=== PATIENT | female | born 1935 | race Caucasian/White ===

== ENCOUNTER 2020-11-26 17:54 | Inpatient (IN) | payer MEDICARE ==
[~2020-11-26] VITALS: Ht 162.6 cm; Wt 59.4 kg
[2020-11-26] MEDS ORDERED: ONDANSETRON HCL/PF 4 MG/2 ML VIAL IV ONE (18:00)
[2020-11-26] MEDS ORDERED: MORPHINE SULFATE INJ 2 MG/ML DISP.SYRIN IV ONE (18:00)
--- NOTE | 2020-11-26 18:01 | NUR ---
Note undone in EDM - 11/26/20 at 1815 by VALERIO BIBRA FROM HOME TO ER BED 16. AAOX4. BREATHING EVEN AND UNLABORED. BROUGHT IN FOR R ARM PAIN S/P FALL. PT WAS NOTED WITH DEFORMITY ON RIGHT UPPER ARM. PEDAL PULSE NOTED. MD WAS AT THE BEDSIDE FOR EVAL. ORDERS RECEIVED, NOTED AND CARRIED OUT.
--- NOTE | 2020-11-26 18:01 | NUR ---
BIBRA FROM HOME TO ER BED 16. AAOX4. BREATHING EVEN AND UNLABORED. BROUGHT IN FOR R ARM PAIN S/P FALL. PT WAS NOTED WITH DEFORMITY ON RIGHT UPPER ARM. RADIAL PULSE NOTED. MD WAS AT THE BEDSIDE FOR EVAL. ORDERS RECEIVED, NOTED AND CARRIED OUT.
[2020-11-26] MEDS ORDERED: ONDANSETRON HCL/PF 4 MG/2 ML VIAL ONE (18:04)
[2020-11-26] MEDS ORDERED: MORPHINE SULFATE INJ 4 MG/ML DISP.SYRIN ONE (18:04)
--- NOTE | 2020-11-26 18:32 | NUR ---
CALLED LISSET[facility] OSMAN PAGED FOR CONSULT
[2020-11-26] MEDS ORDERED: LOSA50TA39 PO (18:35)
[2020-11-26] MEDS ORDERED: HYDR-3980 PO (18:35)
[2020-11-26] MEDS ORDERED: OMEP20CA15 PO (18:35)
[2020-11-26] MEDS ORDERED: CLON1TAB12 PO (18:35)
[2020-11-26] MEDS ORDERED: BENZ-38 PO (18:35)
[2020-11-26] MEDS ORDERED: DONE10TA44 PO (18:35)
[2020-11-26] MEDS ORDERED: DOCU100T9 PO (18:35)
[2020-11-26] MEDS ORDERED: QUET25TA PO (18:35)
[2020-11-26] MEDS ORDERED: FENTANYL PF 100MCG/2ML AMPUL ONE (18:59)
[2020-11-26] MEDS ORDERED: FENTANYL PF 100MCG/2ML AMPUL IV ONE (19:00)
[2020-11-26 19:05] LABS: BASOPHILS # (AUTO) 0.1 /CMM (0.0-0.2); BASOPHILS % (AUTO) 1.1 % (0.0-2.0); EOSINOPHILS % (AUTO) 3.5 % (0.0-6.0); HEMATOCRIT 47 % (33-45); HEMOGLOBIN 15.6 g/dL (11.5-14.8); LYMPHOCYTES # (AUTO) 1.4 /CMM (0.8-4.8); LYMPHOCYTES % (AUTO) 16.9 % (20.0-44.0); MEAN CORPUSCULAR HGB CONC 33 g/dl (31.0-36.0); MEAN CORPUSCULAR VOLUME 94 fL (82-100); MONOCYTES # (AUTO) 0.6 /CMM (0.1-1.30); MONOCYTES % (AUTO) 6.8 % (2.0-12.0); NEUTROPHILS # (AUTO) 5.9 /CMM (1.8-8.9); NEUTROPHILS % (AUTO) 71.7 % (43.0-81.0); PLATELET COUNT (AUTO) 263 /CMM (150-450); RED BLOOD CELL COUNT(AUTO) 4.97 MIL/uL (4.0-5.2); WHITE BLOOD COUNT (AUTO) 8.3 K/uL (4.3-11.0)
[2020-11-26] MEDS ORDERED: MAGNESIUM HYDROXIDE 30 ML UDC PO PRN (19:30)
[2020-11-26] MEDS ORDERED: HYDROMORPHONE 1 MG/1 ML DISP.SYRIN IV PRN (19:30)
[2020-11-26] MEDS ORDERED: Z GUARD REMEDY 2 OZ OINT TP PRN (19:30)
[2020-11-26] MEDS ORDERED: MAG HYDROX/AL HYDROX/SIMETH 30 ML UDC PO PRN (19:30)
[2020-11-26] MEDS ORDERED: ONDANSETRON HCL/PF 4 MG/2 ML VIAL IVP PRN (19:30)
[2020-11-26 20:01] LABS: CALCIUM, SERUM 9.4 mg/dL (8.5-10.1); CARBON DIOXIDE 28 mmol/L (21-32); CHLORIDE 103 mmol/L (98-107); CREATININE 1.9 mg/dL (0.6-1.3); GLUCOSE 101 mg/dL (74-106); POTASSIUM 3.7 mmol/L (3.5-5.1); SODIUM SERUM 144 mmol/L (136-145); UREA NITROGEN, BLOOD 63 mg/dL (7-18)
--- NOTE | 2020-11-26 20:05 | NUR ---
SPOKE TO [facility]; WILL SEND ALL PAPERS THROUGH EMAIL.
[2020-11-26 20:21] VITALS: BP 127/71
[2020-11-26] MEDS ORDERED: LORAZEPAM INJ 2 MG/ML VIAL IV PRN (20:30)
[2020-11-26] MEDS: HEPARIN SODIUM, PORCINE 5000 UNITS/1 ML VIAL SQ SCH (21:00)
--- NOTE | 2020-11-26 21:48 | NUR ---
report given to novem rn for madhav; pt will be transported to 3rd floor
[2020-11-26] MEDS ORDERED: DONEPEZIL 5 MG TABLET PO SCH (22:00)
[2020-11-26] MEDS ORDERED: TEMAZEPAM 15 MG CAPSULE PO PRN (22:00)
--- NOTE | 2020-11-26 22:07 | NUR ---
pt transported to 3rd floor
--- NOTE | 2020-11-26 22:10 | NUR ---
MS ENVELOPE ADDRESSER NOTES: PATIENT ADMITTED FROM ER WITH DIAGNOSIS OF RIGHT HUMERUS FRACTURE. PT IS ALERT AND ORIENTED X2 WITH PERIODS OF FORGETFULNESS. NO S/SX OF ACUTE RESPIRATORY DISTRESS NOTED. DENIES PAIN OR DISCOMFORT AT THIS TIME. PATIENT HAS MEDICAL HISTORY OF DEMENTIA, HYPERTENSION AND GERD. IV ACCESS ON LFA #20G IV FLUIDS NS INFUSING AT 75ML/HR, PATENT AND INTACT, TOLERATING WELL. ALL NEEDS ATTENDED AND ANTICIPATED. BELONGINGS CHECKED. REPOSITIONED PT FOR COMFORT. ASSISTED PATIENT WITH THE USE OF BEDSIDE COMMODE. SAFETY MEASURES IN PLACE, BED IN LOW SETTING, SIDE RAILS X2 IN UPRIGHT POSITION, BRAKES LOCKED. CALL LIGHT WITHIN REACH. WILL CONTINUE TO MONITOR AND ENSURE SAFETY. Addendum: 11/27/20 at 0126 by VASU NO RN SKIN ASSESSMENT DONE. SKIN INTACT
[2020-11-26 22:30] VITALS: BP 127/71
[2020-11-26] MEDS: IV NS 0.9% 1,000 ML IV PRN (22:39)
--- NOTE | 2020-11-26 23:19 | NUR ---
MS RN NOTES HEPARIN DOSE SCHEDULED AT 2200, NON-ADMINISTERED D/T POSSIBLE SURGERY/PROCEDURE TOMORROW. WILL ENDORSE TO MORNING SHIFT.
[2020-11-26] MEDS: QUETIAPINE FUMARATE 25 MG TABLET PO SCH (23:22)
[2020-11-27] VITALS (15 sets, daily range): BP systolic 101–152; BP diastolic 37–99
[2020-11-27 07:30] LABS: BILIRUBIN,URINE NEGATIVE (NEGATIVE); COLOR,URINE YELLOW (YELLOW); LEUKOCYTE ESTERASE ,URINE LARGE (NEGATIVE); NITRITE, URINE NEGATIVE (NEGATIVE); PH,URINE 5.5 (5.0-8.0); PROTEIN,URINE TRACE mg/dl (NEGATIVE); UGLUCOSE NEGATIVE (NEGATIVE); UROBILINOGEN,URINE 0.2 EU/dL (0.2)
--- NOTE | 2020-11-27 07:35 | NUR ---
MS RN CLOSING NOTES: PATIENT IN BED AWAKE, A/OX2, WITH PERIODS OF CONFUSION NOTED. REORIENTATION PROVIDED. NO ACUTE DISTRESS NOTED. NO C/O PAIN OR DISCOMFORT AT THIS TIME. IV ACCESS ON LFA PATENT AND INTACT, INFUSING NS @75ML/HR, TOLERATING WELL. PT IS ON NPO. SAFETY MEASURES IN PLACE. ALL NEEDS MET AND ATTENDED. WILL ENDORSE TO AM SHIFT FOR CONTINUITY OF CARE.
--- NOTE | 2020-11-27 07:38 | NUR ---
MS/RN OPENING NOTE RECEIVED PATIENT FROM [employer] WARFARE OFFICER NURSE. PATIENT IS AWAKE IN BED, A/O X2. NO ACUTE DISTRESS NOTED AT THIS TIME. SAFETY MEASURES IN PLACE, BED LOCKED AND IN LOWEST POSITION, CALL LIGHT WITHIN REACH. WILL CONTINUE TO MONITOR AND ENSURE SAFETY.
[2020-11-27] MEDS: HEPARIN SODIUM, PORCINE 5000 UNITS/1 ML VIAL SQ SCH ×2 (09:00→22:00)
[2020-11-27] MEDS: DOCUSATE SODIUM 100 MG CAPSULE PO SCH (09:00)
--- NOTE | 2020-11-27 10:25 | NUR ---
MS/RN HEPARIN HELD HEPARIN HELD DUE TO ORTHO CONSULT LATER TODAY BY DR. CANELA. AWAITING FOR FURTHER ORDERS. CHARGE NURSE AWARE OF HELD MEDICATION.
[2020-11-27 11:30] LABS: RBC,URINE 21-50 /HPF (0-2)
[2020-11-27 11:31] LABS: WBC,URINE 51-80 /HPF (0-3)
[2020-11-27 11:32] LABS: BACTERIA,URINE Many /HPF (None Seen); SQUAMOUS EPITHELIAL CELL,UR Few /HPF (None Seen)
[2020-11-27] MEDS: CEFTRIAXONE 1 G in IV D5W 50 ML IV SCH (12:49)
[2020-11-27] MEDS: IV NS 0.9% 1,000 ML IV PRN (12:53)
--- NOTE | 2020-11-27 14:16 | NUR ---
SW attempted to meet with the patient. Patient was requesting to use the restroom. SW asked BUSINESS AREA DIRECTOR to assist, SW to follow-up with the patient. SW remains available for all needs regarding this patient.
[2020-11-27] MEDS ORDERED: ANESTHESIA TRAY IN PYXIS 1 EA TRAY MC ONE (15:02)
[2020-11-27] MEDS ORDERED: BUPIVACAINE 0.5 % PF 150 MG/30 ML VIAL ONE (15:02)
[2020-11-27] MEDS ORDERED: BACITRACIN 50000 UNITS/VIAL ONE (15:03)
[2020-11-27] MEDS ORDERED: MIDAZOLAM HCL 2 MG/2ML VIAL ONE (15:04)
[2020-11-27] MEDS ORDERED: FENTANYL PF 100MCG/2ML AMPUL ONE (15:05)
[2020-11-27] MEDS ORDERED: FENTANYL PF 250MCG/5ML AMPUL ONE (15:05)
[2020-11-27] MEDS ORDERED: HYDROMORPHONE INJ 2 MG/ML DISP.SYRIN ONE (15:06)
[2020-11-27] MEDS ORDERED: FAMOTIDINE/PF INJ 20 MG/2 ML VIAL IV ONE (15:06)
--- NOTE | 2020-11-27 15:10 | NUR ---
MS/RN PATIENT TAKEN TO OR PATIENT TAKEN TO OR TO HAVE IM RIGHT HUMERUS FRACTURE REPAIRED. VERBAL CONSENT WAS GIVEN TO SCRIBER AND CHARGE NURSE PRESENT. PATIENT ALERT AND ORIENTED X3 WITH EPISODES OF CONFUSION. PATIENT REFUSED BLOOD PRODUCTS DUE TO MUSLIM PURPOSES, PATIENT IS JEHOVAH WITNESS.
--- NOTE | 2020-11-27 15:15 | NUR ---
Patient lives locally with a friend/roommate in a single level home. Per Lo friend/roommate [phone], patient was on hospice care with [facility] care [phone] and was revoked today due to hospitalization.Patient was walking with assistance prior to admission but confined to bed most of the day. She own a cane, walker, wheelchair, has handicapped bathroom and grab bars in the hallway.Spoke with DPOA Harrison Delgado [phone], discussed dc planning. No SNF placement, DPOA prefer patient to return home with short term homehealth services then transition back to hospice care. Spoke with Leanne at [facility], aware of current plan of care. DPOA will arrange transportation to return home once discharge. Addendum: 11/27/20 at 1630 by ERNIE BARRETT RN Amended: Links added.
[2020-11-27 15:26] LABS: BASOPHILS % (AUTO) 0.2 % (0.0-2.0); EOSINOPHILS % (AUTO) 0.1 % (0.0-6.0); HEMATOCRIT 44 % (33-45); HEMOGLOBIN 14.7 g/dL (11.5-14.8); LYMPHOCYTES # (AUTO) 0.7 /CMM (0.8-4.8); LYMPHOCYTES % (AUTO) 7.3 % (20.0-44.0); MEAN CORPUSCULAR HGB CONC 34 g/dl (31.0-36.0); MEAN CORPUSCULAR VOLUME 92 fL (82-100); MONOCYTES # (AUTO) 0.7 /CMM (0.1-1.30); MONOCYTES % (AUTO) 7.5 % (2.0-12.0); NEUTROPHILS # (AUTO) 7.9 /CMM (1.8-8.9); NEUTROPHILS % (AUTO) 84.9 % (43.0-81.0); RED BLOOD CELL COUNT(AUTO) 4.77 MIL/uL (4.0-5.2); WHITE BLOOD COUNT (AUTO) 9.3 K/uL (4.3-11.0)
--- NOTE | 2020-11-27 15:39 | NUR ---
SW was informed patient had been taken to the OR for procedure. SW to follow-up with the patient. SW remains available for all needs regarding this patient.
[2020-11-27 16:23] LABS: PLATELET COUNT (AUTO) 265 /CMM (150-450)
[2020-11-27 16:34] LABS: CALCIUM, SERUM 10.1 mg/dL (8.5-10.1); CARBON DIOXIDE 27 mmol/L (21-32); CHLORIDE 108 mmol/L (98-107); CREATININE 1.4 mg/dL (0.6-1.3); GLUCOSE 98 mg/dL (74-106); MAGNESIUM 2.3 mg/dL (1.8-2.4); PHOSPHORUS 3.2 mg/dL (2.5-4.9); POTASSIUM 3.7 mmol/L (3.5-5.1); SODIUM SERUM 145 mmol/L (136-145); UREA NITROGEN, BLOOD 48 mg/dL (7-18)
[2020-11-27 16:44] LABS: CHOLESTEROL 130 mg/dL (<200); HDL CHOLESTEROL 75 mg/dL (40-60); LDL 50 mg/dL (0-99); THYROID STIMULATING HORMONE 1.612 uIU/mL (0.358-3.74); TRIGLYCERIDES 49 mg/dL (30-150)
[2020-11-27] MEDS ORDERED: VANCOMYCIN 1 GM VIAL ONE (16:52)
[2020-11-27] MEDS ORDERED: DIGOXIN INJ 0.5 MG/2 ML AMPUL ONE (18:20)
--- NOTE | 2020-11-27 20:46 | NUR ---
MANAGER PAPER NOTE Report given to KYLIE Jaime for continuation of care. Patient transferred to [facility].
[2020-11-27] MEDS ORDERED: CEFAZOLIN 2 GM in IV D5W 100 ML IV SCH (21:00)
[2020-11-27] MEDS ORDERED: CEFAZOLIN 1 GM VIAL IM SCH (21:00)
[2020-11-27] MEDS ORDERED: IV NS 0.9% 500 ML IV ONE (21:00)
[2020-11-27] MEDS ORDERED: AMIODARONE 150 MG in IV D5W 100 ML IV ONE (22:00)
[2020-11-27] MEDS: AMIODARONE 450 MG in IV D5W 250 ML IV PRN (22:39)
[2020-11-27] MEDS: QUETIAPINE FUMARATE 25 MG TABLET PO SCH (22:43)
[2020-11-28] VITALS (42 sets, daily range): BP systolic 81–147; BP diastolic 21–122
[2020-11-28] MEDS: IV D5/0.45 NACL W/20 MEQ KCL 1L IV PRN ×4 (00:05→13:30)
[2020-11-28] MEDS: CEFAZOLIN 2 GM in IV D5W 100 ML IV SCH ×2 (01:26→10:48)
[2020-11-28] MEDS: MORPHINE SULFATE INJ 2 MG/ML DISP.SYRIN IV PRN ×3 (01:33→17:16)
[2020-11-28] MEDS: AMIODARONE 450 MG in IV D5W 250 ML IV PRN ×2 (06:21→21:18)
--- NOTE | 2020-11-28 07:00 | NUR ---
HARNESS RIGGER: PT STILL A. FIB ON LAMP MECHANIC. AMIODARONE DRIP RATE CHANGED TO 0.5MG/MIN AT 0440. REMAINS A/O X2-3 AND GIVEN ATIVAN AND MORPHINE X1 DURING THE SHIFT FOR RESTLESSNESS AND RT. SHOULDER S/P SURGERY. BOTH MEDS GIVEN WT GOOD EFFECT. SURGICAL SITE WT NO ACTIVE BLEEDING. DRESSING DRY, CLEAN AND INTACT AND ON RT. ARM SLING. LEFT WRIST SOFT RESTRAINT IN PLACE FOR EPISODES OF TRYING TO PULL OUT IV TUBINGS. SKIN AND CIRCULATION WNL. GOOD URINE OUTPUT VIA F/C. HOB AT 35 DEGREES, BED IN LOWEST POSITION AND LOCKED. BED ALARM ON. SIDE RAILS UP X2. CALL LIGHT KEPT WITHIN REACH.
--- NOTE | 2020-11-28 08:00 | NUR ---
RN NOTES RECEIVED PT BEDSIDE MONITOR SHOWS A. 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 AMIODARONE DRIP TO 0.5MG/MIN . PATIENT A/A/O X2,SHOULDER S/P SURGERY. SURGICAL SITE WT NO ACTIVE BLEEDING. DRESSING DRY, CLEAN AND INTACT. LEFT ARM SLING WRIST SOFT RESTRAINT IN PLACE FOR TRYING TO PULL OUT IV, AND GROSS TUBINGS. GOOD URINE OUTPUT VIA F/C. HOB AT 35 DEGREES, BED IN LOWEST POSITION AND LOCKED. BED ALARM ON. SIDE RAILS UP X2. CALL LIGHT KEPT WITHIN REACH. WILL MONITORING.
[2020-11-28] MEDS: DOCUSATE SODIUM 100 MG CAPSULE PO SCH (08:07)
[2020-11-28] MEDS: HEPARIN SODIUM, PORCINE 5000 UNITS/1 ML VIAL SQ SCH (08:25)
--- NOTE | 2020-11-28 10:11 | NUR ---
RN NOTES ADMINISTERED MORPHINE SULFATEE 2 MG/ML IV PUSH FOR PAIN ON RIGHT SHOULDER 05/29 PER PATIENT REQUEST, V/S TAKEN BP 102/57, p-76, WILL MONITORING.
[2020-11-28] MEDS: APIXABAN 2.5 MG TABLET PO SCH ×2 (10:44→16:41)
--- NOTE | 2020-11-28 11:15 | NUR ---
RN NOTES MEDICATION WERE ADMINISTERED FOR PAIN EFFECTIVE, PATIENT WITH PT AT THIS TIME. PER PT TRYING TO ASSIST TO GET OUT OB BED.
[2020-11-28] MEDS: CEFTRIAXONE 1 G in IV D5W 50 ML IV SCH (13:30)
[2020-11-28 14:51] LABS: THYROID STIMULATING HORMONE 3.373 uIU/mL (0.358-3.74)
--- NOTE | 2020-11-28 17:17 | NUR ---
rn notes ADMINISTERED MORPHINE SULFATE 2 MG/ML IV PUSH FOR RIGHT SHOULDER PAIN 05/29 PER PATIENT REQUEST. BP 103/43, P-78. ADMINISTERED SCHEDULED MEDICATION.
--- NOTE | 2020-11-28 18:30 | NUR ---
rn notes patient stable, v/s wnl, medication were administered for pain effective, sleeping at this time, refused dinner. patient will transfer tele, endorsed oncoming nurse follow plan of care.
[2020-11-28] MEDS: QUETIAPINE FUMARATE 25 MG TABLET PO SCH (22:27)
[2020-11-29] VITALS (89 sets, daily range): BP systolic 61–137; BP diastolic 17–87
[2020-11-29] MEDS: IV D5/0.45 NACL W/20 MEQ KCL 1L IV PRN ×4 (02:43→16:03)
[2020-11-29 04:45] LABS: BASOPHILS # (AUTO) 0.1 /CMM (0.0-0.2); BASOPHILS % (AUTO) 0.3 % (0.0-2.0); EOSINOPHILS % (AUTO) 0.2 % (0.0-6.0); HEMATOCRIT 35 % (33-45); HEMOGLOBIN 11.7 g/dL (11.5-14.8); LYMPHOCYTES # (AUTO) 1.4 /CMM (0.8-4.8); LYMPHOCYTES % (AUTO) 6.5 % (20.0-44.0); MEAN CORPUSCULAR HGB CONC 33 g/dl (31.0-36.0); MEAN CORPUSCULAR VOLUME 94 fL (82-100); MONOCYTES # (AUTO) 1.4 /CMM (0.1-1.30); MONOCYTES % (AUTO) 6.5 % (2.0-12.0); NEUTROPHILS # (AUTO) 18.4 /CMM (1.8-8.9); NEUTROPHILS % (AUTO) 86.5 % (43.0-81.0); PLATELET COUNT (AUTO) 200 /CMM (150-450); RED BLOOD CELL COUNT(AUTO) 3.73 MIL/uL (4.0-5.2); WHITE BLOOD COUNT (AUTO) 21.3 K/uL (4.3-11.0)
[2020-11-29 04:55] LABS: CALCIUM, SERUM 8.5 mg/dL (8.5-10.1); MAGNESIUM 1.9 mg/dL (1.8-2.4); PHOSPHORUS 1.7 mg/dL (2.5-4.9); POTASSIUM 3.7 mmol/L (3.5-5.1)
[2020-11-29] MEDS: DOCUSATE SODIUM 100 MG CAPSULE PO SCH (07:54)
[2020-11-29] MEDS: MORPHINE SULFATE INJ 2 MG/ML DISP.SYRIN IV PRN ×3 (07:55→17:54)
--- NOTE | 2020-11-29 07:55 | NUR ---
RN NOTES RECEIVED PT BEDSIDE MONITOR SHOWS Rosy CHILEL ON [employer] AGENCY LICENSEE HR- 91, WAS COMPLAINING OF PAIN 8/10 ON RIGHT SHOULDER ADMINISTERED MORPHINE SULFATE 2 MG/ML IV PUSH, AMIODARONE DRIP TO 0.5MG/MIN , AND 0.15% POTASSIUM CHLORIDE AT 75 ML/HR. PATIENT A/A/O X2,SHOULDER S/P SURGERY. SURGICAL SITE WT NO ACTIVE BLEEDING. DRESSING DRY, CLEAN AND INTACT. RIGHT FA IV LEFT SLING , SOFT RESTRAINT LEFT ARM IN PLACE FOR TRYING TO PULL OUT IV, AND GINNY, BRIGID GANG DRILL PRESS OPERATOR PLAN IS HAVING CARDIO VERSION WITH ANESTHESIA. GOOD URINE OUTPUT VIA F/C. BED IN LOWEST POSITION AND LOCKED. BED ALARM ON. SIDE RAILS UP X2. CALL LIGHT KEPT WITHIN REACH. WILL MONITORING.
--- NOTE | 2020-11-29 10:00 | NUR ---
RN NOTES PATIENT GETTING CARDIOVERSION AT THIS TIME VIA ANESTHESIA, BY MD DR MAX, PATIENT STABLE, DURATION 5 MINS, V.S STABLE. PER Dr MAX AFTER FINISH AMIODARONE DRIP IV, START PO MEDICATION. WILL MONITORING.
[2020-11-29] MEDS ORDERED: NEUTRA PHOS 1 POWD.PACKET NG ONE (11:00)
[2020-11-29] MEDS: APIXABAN 5 MG TABLET PO SCH ×2 (11:35→17:23)
[2020-11-29] MEDS: CEFTRIAXONE 1 G in IV D5W 50 ML IV SCH (11:53)
--- NOTE | 2020-11-29 11:54 | NUR ---
RN NOTES ADMINISTERED MORPHINE SULFATE 2 MG/ML IV PUSH FOR PAIN 06/29 PER PATIENT REQUEST, BP 106/62, P-70, , R-17.
[2020-11-29] MEDS: AMIODARONE HCL 200 MG TABLET PO SCH (17:22)
--- NOTE | 2020-11-29 17:55 | NUR ---
rn notes ADMINISTERED MORPHINE SULFATE 2 MG/ML IV PUSH FOR PAIN /10 PER PATIENT REQUEST, BP-139/34, P-62. GROSS DRAINING BY GRAVITY, PATIENT TOLERATED DINNER 35% WITH ASSIST . CALL LIGHT WITHIN TO REACH. PATIENT WILL TRANSFER SERGIO WAITING FOR BED.
--- NOTE | 2020-11-29 18:45 | NUR ---
rn notes patient transferred to the tele unit room 328a, stable medication were administered for pain effective, v/s wnl, report given telephone information clerk Ray. Rn will followed up plan of care.
--- NOTE | 2020-11-29 18:57 | NUR ---
VOLUNTEER SERVICES DIRECTOR CLOSING NOTES PATIENT TRANSFERRED FROM ACU TO 1328-1 VIA HER BED AT 1835 ACCOMPANIED BY KYLIE ALEJANDRO. REPORT GIVEN AT BEDSIDE. PT IS A/O X3. ABLE TO MAKE NEEDS KNOWN. ON 02 VIA N/C AT 2LPM AT THIS TIME, TOLERATING WELL WITH NO ACUTE RESPIRATORY DISTRESS NOTED. IV ACCESS NOTED ON LFA G#20 INTACT AND PATENT WITH IVF RUNNING ORDERED. PT ON EXTERNAL DIRECTOR OF ARCHIVES WITH CURRENT READING SHOWING AFIB CONTROLLED W/ HR ON THE 70'S, NO C/O OF CARDIAC DISTRESS NOTED. GROSS IN PLACE AND ACTIVELY DRAINING CLEAR YELLOW URINE TO GRAVITY. SAFETY MEASURES IMPLEMENTED: BED PLACED IN LOWEST LOCKED POSITION WITH SR UP X2. CALLLIGHT W/IN REACH. WILL ENDORSE TO CLINICAL RESOURCE NURSE NURSE FOR NADINE. Addendum: 11/29/20 at 1915 by LEIGH OROZCO RN ADDENDUM: PT WITH DRESSING ON RIGHT SHOULDER C/D/I. SLING ON RIGHT ARM IN PLACE. ENDORSED TO CLINICAL RESOURCE NURSE RN.
[2020-11-29] MEDS: QUETIAPINE FUMARATE 25 MG TABLET PO SCH (21:02)
--- NOTE | 2020-11-29 21:15 | NUR ---
VIAL GAUGER OPENING NOTES PT RECEIVED. ALERT AND ORIENTED X3. PT LAYING COMFORTABLE IN BED. PT ON TELE MONITOR AFIB CONTROLLED (70S). PT ON 2L NASAL CANNULA. TOLERATING WELL. GROSS CATHETER PATENT. NO OBSTRUCTIONS, NO OCCLUSIONS. DRAINING CLEAR, YELLOW URINE. NO S/S OF INFECTION, INFILTRATION. LFA #20, IVF RUNNING ORDERED. NO OCCLUSIONS, NO INFILTRATIONS. PATENT. WILL CONTINUE PLAN OF CARE.
[2020-11-29] MEDS: ACETAMINOPHEN 325 MG TABLET PO PRN (21:24)
[2020-11-30] VITALS (7 sets, daily range): BP systolic 115–131; BP diastolic 61–77
[2020-11-30] MEDS: ACETAMINOPHEN 325 MG TABLET PO PRN (06:21)
--- NOTE | 2020-11-30 06:44 | NUR ---
RN NOTES PT. ALERT AND ORIENTED X3. PT LAYING COMFORTABLE IN BED. PT ON TELE MONITOR. PT ON 2L NASAL CANNULA. TOLERATING WELL. GROSS CATHETER PATENT. NO OBSTRUCTIONS, NO OCCLUSIONS. DRAINING CLEAR, YELLOW URINE. NO S/S OF INFECTION, INFILTRATION. LFA #20, IVF RUNNING ORDERED. NO OCCLUSIONS, NO INFILTRATIONS. PATENT. CALL LIGHT WITHIN REACH BED LOCKED IN POSITION.WILL ENDORSE CARE TO DAY SHIFT NURSE.
--- NOTE | 2020-11-30 07:08 | NUR ---
MILK TREATER OPENING NOTES RECEIVED PT AWAKE IN BED AT THIS TIME. AOX2-3. NO SOB NOTED, NO S/S OF ANY APPARENT DISTRESS NOTED. NO C/O PAIN NOTED AT THIS TIME. RESPIRATIONS ARE EVEN AND UNLABORED WITH EQUAL RISE AND FALL IN CHEST. PT NOTED ON OXYGEN @ 2LPM VIA NC. PT ON EXTERNAL DIRECT CARE WORKER READING SR 65. IV ACCESS NOTED IN RIGHT HAND G#20. INTACT, PATENT AND FLUSHING WELL. GROSS CATHETER IN PLACE DRAINING TO GRAVITY CLEAR YELLOW URINE OUTPUT. PT NOTED WITH RIGHT ARM SLING. ASPIRATION, RESPIRATORY AND SAFETY PRECAUTION IN PLACE AND MAINTAINED AT ALL TIMES. BED IN LOWEST LOCKED POSITION, HOB ELEVATED, SIDE RAILS UP X 2, CALL LIGHT AND TABLE WITHIN REACH. WILL CONTINUE WITH PLAN OF CARE.
[2020-11-30 07:47] LABS: BASOPHILS % (AUTO) 0.3 % (0.0-2.0); EOSINOPHILS % (AUTO) 0.5 % (0.0-6.0); HEMATOCRIT 31 % (33-45); HEMOGLOBIN 10.3 g/dL (11.5-14.8); LYMPHOCYTES # (AUTO) 1.1 /CMM (0.8-4.8); LYMPHOCYTES % (AUTO) 8.1 % (20.0-44.0); MEAN CORPUSCULAR HGB CONC 34 g/dl (31.0-36.0); MEAN CORPUSCULAR VOLUME 93 fL (82-100); MONOCYTES % (AUTO) 7.6 % (2.0-12.0); NEUTROPHILS % (AUTO) 83.5 % (43.0-81.0); PLATELET COUNT (AUTO) 204 /CMM (150-450); RED BLOOD CELL COUNT(AUTO) 3.32 MIL/uL (4.0-5.2); WHITE BLOOD COUNT (AUTO) 13.2 K/uL (4.3-11.0)
[2020-11-30 08:14] LABS: CREATININE 0.8 mg/dL (0.6-1.3); MAGNESIUM 1.7 mg/dL (1.8-2.4); PHOSPHORUS 1.6 mg/dL (2.5-4.9); POTASSIUM 3.8 mmol/L (3.5-5.1)
[2020-11-30] MEDS: AMIODARONE HCL 200 MG TABLET PO SCH (08:37)
[2020-11-30] MEDS: DOCUSATE SODIUM 100 MG CAPSULE PO SCH (08:37)
[2020-11-30] MEDS: APIXABAN 5 MG TABLET PO SCH ×2 (08:39→17:06)
[2020-11-30] MEDS ORDERED: K PHOS NEUTRAL 250 MG TABLET PO ONE (11:00)
[2020-11-30] MEDS: Magnesium 1GM/D5W 100ML PREMIX 100 ML IV SCH ×2 (11:14→13:08)
[2020-11-30] MEDS: IV D5/0.45 NACL W/20 MEQ KCL 1L IV PRN ×2 (11:19)
[2020-11-30] MEDS: CEFTRIAXONE 1 G in IV D5W 50 ML IV SCH (12:02)
[2020-11-30] MEDS ORDERED: ONDANSETRON HCL/PF 4 MG/2 ML VIAL IV ONE (13:00)
--- NOTE | 2020-11-30 13:02 | NUR ---
RECEIVED ORDERS FROM DR LAI TO ADMINISTER ZOFRAN 4MG IV ONCE AT THIS TIME D/T PATIENT C/O NAUSEA. WILL CARRY OUT ORDERS AND CONTINUE TO MONITOR
--- NOTE | 2020-11-30 13:42 | NUR ---
PT C/O NAUSEA. NO EMESIS NOTED. PER PT REQUEST,ZOFRAN 4MG IV ONCE WAS ADMINISTERED AT THIS TIME. WILL CONTINUE TO MONITOR
[2020-11-30] MEDS: METOPROLOL TARTRATE 25 MG TABLET PO SCH ×2 (15:20→21:00)
--- NOTE | 2020-11-30 19:10 | NUR ---
RN CLOSING NOTES PT AWAKE IN BED AT THIS TIME. PT REMAINED STABLE THROUGHOUT SHIFT. ALL CARE, NEED, MEDICATIONS AND TREATMENT ADMINISTERED ANTICIPATED PER ORDER. PT KEPT CLEAN AND DRY. WOUND CARE TREATMENT ADMINISTERED PER ORDER. GROSS CATHETER CARE PROVIDED. PT REPOSITION Q2HR AND PRN. ASPIRATION AND SAFETY PRECAUTION IN PLACE AND MAINTAINED AT ALL TIMES. BED IN LOWEST LOCKED POSITION, HOB ELEVATED, SIDE RAILS UP X 2, CALL LIGHT AND TABLE WITHIN REACH. ENDORSED TO BUSINESS OPERATIONS CONSULTANT NURSE FOR NADINE
--- NOTE | 2020-11-30 20:15 | NUR ---
RN NOTE Patient Received. Patient is noted in bed, awake, alert and oriented x2. Patient is currently on 2L via NC with no acute distress or shortness of breath. Patient continues on tele monitor and noted to be NSR. Tele box removed. IV site removed covered with gauze and secured with tape. R arm remains in sling. Patient with orders for discharge to [facility]. Report given to Emy with Ambulance pickling solution maker. All belongings reviewed with patient and noted. patient off the floor in stable condition.
== END 2020-11-30 20:15 | DRG 492 ==
LOC: ER 17:56 → TRANSITION 19:59 → MED 21:41 → TELE 11-27 18:50 → ICU 11-27 20:45 → TELE 11-29 18:34
PROVIDERS: ADMIT Nurse Practitioner Acute Care
PROC: 0PSF06Z Reposition Right Humeral Shaft with Intramedullary Internal Fixation Device, Open Approach (ICD-10-PCS; principal; 2020-11-27)
DX: S42.351A Displaced comminuted fracture of shaft of humerus, right arm, initial encounter for closed fracture (principal); N17.0 Acute kidney failure with tubular necrosis; I13.0 Hypertensive heart and chronic kidney disease with heart failure and stage 1 through stage 4 chronic kidney disease, or unspecified chronic kidney disease; D68.69 Other thrombophilia; W01.0XXA Fall on same level from slipping, tripping and stumbling without subsequent striking against object, initial encounter; F41.9 Anxiety disorder, unspecified; F03.90 Unspecified dementia, unspecified severity, without behavioral disturbance, psychotic disturbance, mood disturbance, and anxiety; N18.9 Chronic kidney disease, unspecified; I50.9 Heart failure, unspecified; K21.9 Gastro-esophageal reflux disease without esophagitis; N13.9 Obstructive and reflux uropathy, unspecified; I48.91 Unspecified atrial fibrillation; Z20.822 Contact with and (suspected) exposure to COVID-19; Y93.9 Activity, unspecified; Y92.121 Bathroom in nursing home as the place of occurrence of the external cause
CPT/HCPCS: 36415; 71045-TC; 73060-TC; 73070-TC; 80048-TC; 80061-TC; 81001; 82962-TC; 83735-TC; 84100-TC; 84439-TC; 84443-TC; 84484-TC; 85025-TC; 85730-TC; 87081-TC; 87086-TC; 87186-TC; 93307-TC; 94799-TC; 97112-TC; 97530-TC; A4565; A6253; A6402; C1713; G0378; J0282; J0690; J0696; J1160; J1170; J1644; J2060; J2250; J2270; J2405; J2704; J2765; J3010; J3370; J3475; J3480; J3490; J7030; J7060

== ENCOUNTER 2021-07-23 20:19 | Inpatient (IN) | payer MEDICARE ==
[~2021-07-23] VITALS: Ht 162.6 cm; Wt 50.8 kg
[~2021-07-23 20:19] MED LIST: BENZ-38 PO; CLON1TAB12 PO; DOCU100T9 PO; DONE10TA44 PO; HYDR-3980 PO; LOSA50TA39 PO; OMEP20CA15 PO; QUET25TA PO
--- NOTE | 2021-07-23 20:20 | NUR ---
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 PT A/OX3. TOLERATING ROOM AIR WELL WITH NO SOB.
[2021-07-23] MEDS ORDERED: HYDROMORPHONE INJ 2 MG/ML DISP.SYRIN IV ONE (20:30)
[2021-07-23] MEDS ORDERED: ONDANSETRON HCL/PF 4 MG/2 ML VIAL IVP ONE (20:30)
[2021-07-23] MEDS ORDERED: ONDANSETRON HCL/PF 4 MG/2 ML VIAL ONE (20:32)
[2021-07-23] MEDS ORDERED: HYDROMORPHONE INJ 2 MG/ML DISP.SYRIN ONE (20:32)
--- NOTE | 2021-07-23 20:50 | NUR ---
INITIATED IV L WRIST #22G BLOOD LABS COLLECTED
--- NOTE | 2021-07-23 20:53 | NUR ---
MRSA SWAB COLLECTED AND SENT TO LAB
--- NOTE | 2021-07-23 21:01 | NUR ---
INSTRUCTIONAL TECHNOLOGY FACILITATOR AT BEDSIDE
--- NOTE | 2021-07-23 21:11 | NUR ---
COVID SWAB VIA HUMAN RESOURCES EXECUTIVE COLLECTED AND SENT TO LAB
[2021-07-23 21:15] LABS: CALCIUM, SERUM 8.9 mg/dL (8.5-10.1); CREATININE 0.7 mg/dL (0.6-1.3); POTASSIUM 4.1 mmol/L (3.5-5.1)
[2021-07-23] MEDS ORDERED: ZOLPIDEM TARTRATE 5 MG TABLET PO PRN (23:00)
[2021-07-23] MEDS ORDERED: ONDANSETRON HCL/PF 4 MG/2 ML VIAL IVP PRN (23:00)
[2021-07-23] MEDS ORDERED: Z GUARD REMEDY 2 OZ OINT TP PRN (23:00)
[2021-07-23 23:20] LABS: BASOPHILS # (AUTO) 0.1 K/uL (0.0-0.2); BASOPHILS % (AUTO) 1.3 % (0.0-2.0); EOSINOPHILS % (AUTO) 4.2 % (0.0-6.0); HEMATOCRIT 44 % (33-45); HEMOGLOBIN 14.6 g/dL (11.5-14.8); LYMPHOCYTES # (AUTO) 1.7 K/uL (0.8-4.8); LYMPHOCYTES % (AUTO) 31.3 % (20.0-44.0); MEAN CORPUSCULAR HGB CONC 33 g/dl (31.0-36.0); MEAN CORPUSCULAR VOLUME 94 fL (82-100); MONOCYTES # (AUTO) 0.4 K/uL (0.1-1.30); MONOCYTES % (AUTO) 7.5 % (2.0-12.0); NEUTROPHILS % (AUTO) 55.7 % (43.0-81.0); PLATELET COUNT (AUTO) 266 K/uL (150-450); RED BLOOD CELL COUNT(AUTO) 4.69 MIL/uL (4.0-5.2); WHITE BLOOD COUNT (AUTO) 5.4 K/uL (4.3-11.0)
[2021-07-24] MEDS: IV 1/2NS 1000 ML 1,000 ML IV PRN ×2 (04:11→16:48)
[2021-07-24] MEDS ORDERED: HYDROMORPHONE INJ 2 MG/ML DISP.SYRIN ONE (04:15)
[2021-07-24] MEDS: HYDROMORPHONE INJ 2 MG/ML DISP.SYRIN IV PRN ×2 (04:18→16:48)
--- NOTE | 2021-07-24 04:18 | NUR ---
PT C/O 8/10 R ARM PAIN. ADMINISTERED DILAUDID ORDERED. WILL REASSESS IN 30 MINUTES.
[2021-07-24 05:49] LABS: BASOPHILS # (AUTO) 0.1 K/uL (0.0-0.2); BASOPHILS % (AUTO) 1.5 % (0.0-2.0); EOSINOPHILS % (AUTO) 3.2 % (0.0-6.0); HEMATOCRIT 40 % (33-45); HEMOGLOBIN 13.6 g/dL (11.5-14.8); LYMPHOCYTES % (AUTO) 16.5 % (20.0-44.0); MEAN CORPUSCULAR HGB CONC 34 g/dl (31.0-36.0); MEAN CORPUSCULAR VOLUME 93 fL (82-100); MONOCYTES # (AUTO) 0.4 K/uL (0.1-1.30); MONOCYTES % (AUTO) 7.4 % (2.0-12.0); NEUTROPHILS # (AUTO) 4.2 K/uL (1.8-8.9); NEUTROPHILS % (AUTO) 71.4 % (43.0-81.0); PLATELET COUNT (AUTO) 265 K/uL (150-450); RED BLOOD CELL COUNT(AUTO) 4.34 MIL/uL (4.0-5.2); WHITE BLOOD COUNT (AUTO) 5.9 K/uL (4.3-11.0)
[2021-07-24 05:55] LABS: BILIRUBIN,TOTAL 0.3 mg/dL (0.2-1.0); CALCIUM, SERUM 8.7 mg/dL (8.5-10.1); CREATININE 0.8 mg/dL (0.6-1.3); PHOSPHORUS 3.6 mg/dL (2.5-4.9); POTASSIUM 4.5 mmol/L (3.5-5.1); TOTAL PROTEIN, SERUM 5.6 g/dL (6.4-8.2)
[2021-07-24 06:16] LABS: THYROID STIMULATING HORMONE 4.383 uIU/mL (0.358-3.74)
[2021-07-24] MEDS ORDERED: PANTOPRAZOLE 40 MG VIAL ONE (08:03)
[2021-07-24] MEDS ORDERED: DOCUSATE SODIUM 100 MG CAPSULE PO ONE (08:03)
[2021-07-24] MEDS: DOCUSATE SODIUM 100 MG CAPSULE PO SCH ×2 (08:13→17:13)
[2021-07-24] MEDS: PANTOPRAZOLE 40 MG VIAL IV SCH (08:13)
--- NOTE | 2021-07-24 08:13 | NUR ---
ASSESSED PT ON BED AWAKE AND ALERT. NOT IN RESPIRATORY DISTRESS, V/S STABLE, KEPT RESTED AND COMFORTABLE. WILL CONTINUE TO MONITOR.
--- NOTE | 2021-07-24 08:40 | NUR ---
AT BEDSIDE FOR EVAL.
[2021-07-24] MEDS ORDERED: MORP15TA60 PO (09:28)
[2021-07-24] MEDS ORDERED: MECL-159 PO (09:28)
[2021-07-24] MEDS ORDERED: MIRT-90 PO (09:28)
[2021-07-24] MEDS ORDERED: AMIO200T5 PO (09:28)
[2021-07-24] MEDS ORDERED: SENN-261 PO (09:28)
[2021-07-24] MEDS ORDERED: OXYC-128 PO (09:28)
[2021-07-24] MEDS ORDERED: QUET50TA PO (09:28)
[2021-07-24] MEDS ORDERED: TIZA-180 PO (09:28)
[2021-07-24] MEDS ORDERED: ACET-2605 PO (09:28)
[2021-07-24] MEDS ORDERED: DULO20CA PO (09:28)
[2021-07-24] MEDS ORDERED: MECLIZINE HCL 25 MG TABLET PO PRN (11:00)
--- NOTE | 2021-07-24 12:16 | NUR ---
SPOKED TO MEL LUNA (POWER OF LANDSCAPE ARCHITECT) FOR PT UPDATE
--- NOTE | 2021-07-24 12:56 | NUR ---
BED 308-2 PER NURSING ASSOCIATE PROFESSOR OF LIBRARY MEDIA
--- NOTE | 2021-07-24 13:10 | NUR ---
report given to m/s nurse. awaiting transfer to floor.
[2021-07-24 13:30] VITALS: BP 142/64
--- NOTE | 2021-07-24 13:30 | NUR ---
MS COMMUNICATIONS MANAGER NOTE RECEIVED PATIENT FROM ER. STABLE. CAME FROM HOME FOR ARM PAIN (HUMEROUS FRACTURE). A/O X3. STABLE ON ROOM AIR - NO SOB NOTED. NO DISTRESS/DISCOMFORT NOTED. NO PAIN AT THIS TIME, ONLY WHEN PATIENT MOVES RIGHT SIDE. SKIN IS INTACT. IV ACCESS TO LEFT WRIST #22 - SALINE LOCKED. SAFETY MEASURES IN PLACE. CALL LIGHT WITHIN REACH. WILL CONTINUE TO MONITOR.
[2021-07-24 16:00] VITALS: BP 120/62
[2021-07-24 16:50] LABS: MAGNESIUM 2.2 mg/dL (1.8-2.4)
[2021-07-24] MEDS: MIRTAZAPINE 15 MG TABLET PO SCH (17:12)
[2021-07-24] MEDS: QUETIAPINE FUMARATE 25 MG TABLET PO SCH (17:13)
[2021-07-24] MEDS: AMIODARONE HCL 200 MG TABLET PO SCH (17:13)
--- NOTE | 2021-07-24 19:22 | NUR ---
MS RN CLOSING NOTE PATIENT CURRENTLY LYING IN BED, AWAKE. A/O X3. STABLE ON ROOM AIR - NO SOB NOTED. NO DISTRESS/DISCOMFORT NOTED. NO PAIN AT THIS TIME, ONLY WHEN PATIENT MOVES RIGHT SIDE. LAST PAIN MEDICATION GIVEN @ 1648 - DILAUDID 1MG IV. SKIN IS INTACT. IV ACCESS TO LEFT WRIST #22 - RUNNING 1/2NS @ 75ML/HR. SAFETY MEASURES IN PLACE. CALL LIGHT WITHIN REACH. WILL ENDORSE TO ADJUNCT PHLEBOTOMY INSTRUCTOR NURSE FOR NADINE.
--- NOTE | 2021-07-24 19:45 | NUR ---
MS RN OPENING NOTE RECEIVED PATIENT LYING IN BED, AWAKE. A/O X3. NO S/SX OF RESPIRATORY DISTRESS NOTED. PT IS ON ROOM AIR AND TOLERATING WELL. NO SOB NOTED. NO PAIN AT THIS TIME. IV ACCESS IN L WRIST #22 - RUNNING 1/2NS @ 75ML/HR. SAFETY MEASURES IN PLACE: BED IN LOWEST, LOCKED POSITION, BRAKES ON, SIDERAILS UP x2. CALL LIGHT AND TABLE WITHIN REACH. WILL CONTINUE TO MONITOR.
[2021-07-24 20:00] VITALS: BP 123/68
[2021-07-25] MEDS: IV 1/2NS 1000 ML 1,000 ML IV PRN ×2 (05:15→17:52)
--- NOTE | 2021-07-25 06:41 | NUR ---
MS RN CLOSING NOTES PATIENT ASLEEP IN BED, AWAKENS TO VERBAL STIMULI. A/O X3. NO S/SX OF RESPIRATORY DISTRESS NOTED. PT IS ON ROOM AIR AND TOLERATING WELL. NO SOB NOTED. NO COMPLAINTS OF PAIN THROUGHOUT THE SHIFT. IV ACCESS IN L WRIST #22 - RUNNING 1/2NS @ 75ML/HR. ALL NEEDS MET. PT KEPT CLEAN AND DRY. SAFETY MEASURES IN PLACE: BED IN LOWEST, LOCKED POSITION, BRAKES ON, SIDERAILS UP x2. CALL LIGHT AND TABLE WITHIN REACH. WILL ENDORSE TO ONCOMING SHIFT FOR NADINE.
[2021-07-25 06:43] LABS: BASOPHILS # (AUTO) 0.1 K/uL (0.0-0.2); BASOPHILS % (AUTO) 1.2 % (0.0-2.0); HEMATOCRIT 37 % (33-45); HEMOGLOBIN 12.6 g/dL (11.5-14.8); LYMPHOCYTES % (AUTO) 22.7 % (20.0-44.0); MEAN CORPUSCULAR HGB CONC 34 g/dl (31.0-36.0); MEAN CORPUSCULAR VOLUME 93 fL (82-100); MONOCYTES # (AUTO) 0.4 K/uL (0.1-1.30); MONOCYTES % (AUTO) 7.8 % (2.0-12.0); NEUTROPHILS % (AUTO) 64.3 % (43.0-81.0); PLATELET COUNT (AUTO) 232 K/uL (150-450); RED BLOOD CELL COUNT(AUTO) 4.02 MIL/uL (4.0-5.2); WHITE BLOOD COUNT (AUTO) 4.6 K/uL (4.3-11.0)
[2021-07-25 06:49] LABS: CALCIUM, SERUM 8.5 mg/dL (8.5-10.1); CREATININE 0.6 mg/dL (0.6-1.3); POTASSIUM 4.3 mmol/L (3.5-5.1)
--- NOTE | 2021-07-25 07:33 | NUR ---
MS RN OPENING NOTE RECEIVED PATIENT RESTING IN BED, EASY TO AROUSE. A/O X3. STABLE ON ROOM AIR - NO SOB NOTED. NO DISTRESS/DISCOMFORT NOTED. NO PAIN NOTED AT THIS TIME. IV ACCESS TO RIGHT FA #22 - RUNNING 1/2NS @ 75ML/HR. SAFETY MEASURES IN PLACE, CALL LIGHT WITHIN REACH. WILL CONTINUE TO MONITOR.
[2021-07-25] MEDS: DOCUSATE SODIUM 100 MG CAPSULE PO SCH ×2 (08:54→17:14)
[2021-07-25] MEDS: MORPHINE SULFATE SR 15 MG TABLET.SA PO SCH (08:54)
[2021-07-25] MEDS: DULOXETINE HCL 20 MG CAPSULE.DR PO SCH (08:54)
[2021-07-25] MEDS: LOSARTAN POTASSIUM 50 MG TABLET PO SCH (08:54)
[2021-07-25] MEDS: DONEPEZIL 5 MG TABLET PO SCH (08:54)
[2021-07-25] MEDS: PANTOPRAZOLE 40 MG VIAL IV SCH (08:55)
[2021-07-25] MEDS: SENNOSIDES 8.6 MG TABLET PO SCH (08:55)
[2021-07-25] MEDS: BENZONATATE 100 MG CAPSULE PO SCH (08:55)
[2021-07-25] MEDS: TIZANIDINE HCL 4 MG TABLET PO SCH (08:55)
[2021-07-25] MEDS: QUETIAPINE FUMARATE 25 MG TABLET PO SCH (17:14)
[2021-07-25] MEDS: AMIODARONE HCL 200 MG TABLET PO SCH (17:14)
[2021-07-25] MEDS: MIRTAZAPINE 15 MG TABLET PO SCH (17:14)
--- NOTE | 2021-07-25 18:37 | NUR ---
MS RN CLOSING NOTE PATIENT CURRENTLY LYING IN BED, AWAKE. A/O X3. STABLE ON ROOM AIR - NO SOB NOTED. NO DISTRESS/DISCOMFORT NOTED. NO PAIN NOTED AT THIS TIME. RIGHT ARM IS COMFORTABLY IN A SLING. SKIN IS INTACT. IV ACCESS TO RIGHT FOREARM #22 - RUNNING 1/2NS @ 75ML/HR. SAFETY MEASURES IN PLACE. CALL LIGHT WITHIN REACH. WILL ENDORSE TO DOCUMENT EXAMINER NURSE FOR NADINE.
--- NOTE | 2021-07-25 19:35 | NUR ---
RN NOTES Received patient awake on her bed, a/ox3, confused at times, not in distree, denies pain, bed in lockd position, call light within reach, siderailsupx2., will continue to monitor
[2021-07-25 20:00] VITALS: BP 119/53
[2021-07-25 20:08] VITALS: BP_SYST 119
--- NOTE | 2021-07-26 06:35 | NUR ---
RN NOTES Sleeping but arousable, not in distress, no pain noted, morning care rendered, call light within reach, estefaniupx2, pt. needs attended
--- NOTE | 2021-07-26 07:18 | NUR ---
MS RN OPENING NOTE RECEIVED PATIENT ON BED ASLEEP BUT EASILY AROUSABLE. PATIENT IS ALERT AND ORIENTED X 3 WITH PERIODS OF CONFUSION AND ABLE TO MAKE NEEDS KNOWN. PATIENT WOKE UP CONFUSED AND REORIENTED TO TIME PLACE AND PERSON. PATIENT IS ON ROOM AIR WITH NO SIGNS OF RESPIRATORY DISTRESS. PATIENT WITH IV ACCESS ON RIGHT FOREARM WITH IVF OF 1/2 NS AT 75ML/HR, INFUSING WELL. WITH ARM SLING ON THE RIGHT ARM. COMFORT MEASURES PROVIDED. SAFETY PRECAUTIONS IN PLACE WITH BED IN LOWEST, LOCKED POSITION, BRAKES ON, SIDE RAILS UPx2. CALL LIGHT AND TABLE WITHIN REACH AT ALL TIMES. WILL CONTINUE TO MONITOR PATIENT.
[2021-07-26 08:00] VITALS: BP 110/50
--- NOTE | 2021-07-26 08:20 | NUR ---
MS RN NOTE PATIENT SEEN BY DR. COLVIN
[2021-07-26] MEDS: BENZONATATE 100 MG CAPSULE PO SCH (08:57)
[2021-07-26] MEDS: DULOXETINE HCL 20 MG CAPSULE.DR PO SCH (09:03)
[2021-07-26] MEDS: DONEPEZIL 5 MG TABLET PO SCH (09:03)
[2021-07-26] MEDS: MORPHINE SULFATE SR 15 MG TABLET.SA PO SCH (09:04)
[2021-07-26] MEDS: SENNOSIDES 8.6 MG TABLET PO SCH (09:04)
[2021-07-26] MEDS: TIZANIDINE HCL 4 MG TABLET PO SCH (09:05)
[2021-07-26] MEDS: PANTOPRAZOLE 40 MG TABLET.DR PO SCH (09:06)
[2021-07-26] MEDS: LOSARTAN POTASSIUM 50 MG TABLET PO SCH (09:06)
[2021-07-26] MEDS: DOCUSATE SODIUM 100 MG CAPSULE PO SCH ×2 (09:06→18:08)
--- NOTE | 2021-07-26 10:30 | NUR ---
MS RN NOTE PATIENT SEEN BY DR. CANELA
--- NOTE | 2021-07-26 11:30 | NUR ---
MS RN NOTE PATIENT WITH ORDER FOR DISCHARGE BY DR. COLVIN. ORDERS CARRIED OUT. HEALTH TEACHING DONE REGARDING DISCHARGE. PATIENT VERBALIZED UNDERSTANDING AND APPRECIATION. PATIENT IS ALERT AND ORIENTED X 3 BUT VERY FORGETFUL. CATARACT LENS GENERATOR TO COORDINATE DISCHARGE AND TRANSPORTATION. COMFORT MEASURES PROVIDED. WILL CONTINUE TO MONITOR PATIENT.
--- NOTE | 2021-07-26 12:19 | NUR ---
MS RN NOTE RECEIVED A CALL FROM DR. CANELA TO DO X-RAY OF RIGHT FOREARM. ORDERS READ BACK AND VERIFIED. ORDERS MADE AND CARRIED OUT.
--- NOTE | 2021-07-26 15:57 | NUR ---
MS RN NOTE XRAY RESULT OF RIGHT FOREARM RELAYED TO DR. CANELA WITH ORDER HOLD DISCHARGE FOR NOW. MD WILL SEE PATIENT TOMORROW. LEFT MESSAGE WITH DPOA MR LUNA. WILL CONTINUE TO MONITOR PATIENT. Addendum: 07/26/21 at 1849 by TIRSO BARRIENTOS RN DR. COLVIN NOTIFIED OF DR. CANELA'S ORDER. DIRECTOR [employer] NOTIFIED TO CANCEL TRANSPORTATION.
[2021-07-26 16:00] VITALS: BP 120/60
--- NOTE | 2021-07-26 16:20 | NUR ---
MS RN NOTE FOLLOW UP CALL MADE WITH MR. LUNA AND NOTIFIED HIM OF MD'S ORDER TO HOLD DISCHARGE. VERBALIZED UNDERSTANDING AND APPRECIATION. WILL CONTINUE TO MONITOR PATIENT.
[2021-07-26] MEDS: QUETIAPINE FUMARATE 25 MG TABLET PO SCH (18:07)
[2021-07-26] MEDS: MIRTAZAPINE 15 MG TABLET PO SCH (18:08)
[2021-07-26] MEDS: oxyCODONE/APAP (5/325 MG) 1 UDTAB TABLET PO PRN (18:08)
[2021-07-26] MEDS: AMIODARONE HCL 200 MG TABLET PO SCH (18:08)
--- NOTE | 2021-07-26 19:00 | NUR ---
MS RN CLOSING NOTE PATIENT ON BED ASLEEP BUT EASILY AROUSABLE. PATIENT IS ALERT AND ORIENTED X 3 WITH PERIODS OF CONFUSION AND ABLE TO MAKE NEEDS KNOWN. PATIENT WOKE UP CONFUSED AND REORIENTED TO TIME PLACE AND PERSON. PATIENT IS ON ROOM AIR WITH NO SIGNS OF RESPIRATORY DISTRESS. PATIENT WITH IV ACCESS ON RIGHT FOREARM WITH IVF OF 1/2 NS AT 75ML/HR, INFUSING WELL. WITH ARM SLING ON THE RIGHT ARM. COMFORT MEASURES PROVIDED. SAFETY PRECAUTIONS IN PLACE WITH BED IN LOWEST, LOCKED POSITION, BRAKES ON, SIDE RAILS UPx2. CALL LIGHT AND TABLE WITHIN REACH AT ALL TIMES. WILL ENDORSE TO NEXT SHIFT FOR CONTINUITY OF CARE.
--- NOTE | 2021-07-26 19:43 | NUR ---
RN OPENING NOTES PATIENT ON BED ASLEEP BUT EASILY AROUSABLE. PATIENT IS ALERT AND ORIENTED X 3 WITH PERIODS OF CONFUSION AND ABLE TO MAKE NEEDS KNOWN. PATIENT WOKE UP CONFUSED AND REORIENTED TO TIME PLACE AND PERSON. PATIENT IS ON ROOM AIR WITH NO SIGNS OF RESPIRATORY DISTRESS. PATIENT WITH IV ACCESS ON RIGHT FOREARM WITH IVF OF 1/2 NS AT 75ML/HR, INFUSING WELL. WITH ARM SLING ON THE RIGHT ARM. COMFORT MEASURES PROVIDED. SAFETY PRECAUTIONS IN PLACE WITH BED IN LOWEST, LOCKED POSITION, BRAKES ON, SIDE RAILS UPx2. CALL LIGHT AND TABLE WITHIN REACH AT ALL TIMES. WILL CONTINUE TO MONITOR.
[2021-07-26 20:00] VITALS: BP_SYST 116; BP_SYST 126; BP_DIAS 61; BP_DIAS 70
[2021-07-27] MEDS: IV 1/2NS 1000 ML 1,000 ML IV PRN (02:18)
--- NOTE | 2021-07-27 06:27 | NUR ---
RN NOTES PATIENT ON BED ASLEEP BUT EASILY AROUSABLE. PATIENT IS ALERT AND ORIENTED X 3 WITH PERIODS OF CONFUSION AND ABLE TO MAKE NEEDS KNOWN. PATIENT PATIENT IS ON ROOM AIR WITH NO SIGNS OF RESPIRATORY DISTRESS. PATIENT WITH IV ACCESS ON RIGHT FOREARM WITH IVF OF 1/2 NS AT 75ML/HR, INFUSING WELL. WITH ARM SLING ON THE RIGHT ARM. COMFORT MEASURES PROVIDED. SAFETY PRECAUTIONS IN PLACE WITH BED IN LOWEST, LOCKED POSITION, BRAKES ON, SIDE RAILS UPx2. CALL LIGHT AND TABLE WITHIN REACH AT ALL TIMES. WILL ENDORSE CARE TO DAY SHIFT NURSE
--- NOTE | 2021-07-27 07:50 | NUR ---
RN OPENING NOTES Patient seen comfortably lying in bed, AO X 2-3 with episodes of forgetfulness, reorientation provided, no SOB, breathing even and unlabored, no apparent distress noted, denies any pain or discomfort at this time, no grimacing. Call light left within reach, safety measures maintained, brakes locked, side rails up X2, will monitor closely for any changes.
[2021-07-27 08:00] VITALS: BP 127/68
[2021-07-27] MEDS: DONEPEZIL 5 MG TABLET PO SCH (09:05)
[2021-07-27] MEDS: TIZANIDINE HCL 4 MG TABLET PO SCH (09:05)
[2021-07-27] MEDS: BENZONATATE 100 MG CAPSULE PO SCH (09:05)
[2021-07-27] MEDS: DULOXETINE HCL 20 MG CAPSULE.DR PO SCH (09:05)
[2021-07-27] MEDS: LOSARTAN POTASSIUM 50 MG TABLET PO SCH (09:06)
[2021-07-27] MEDS: PANTOPRAZOLE 40 MG TABLET.DR PO SCH (09:06)
[2021-07-27] MEDS: SENNOSIDES 8.6 MG TABLET PO SCH (09:06)
[2021-07-27] MEDS: DOCUSATE SODIUM 100 MG CAPSULE PO SCH ×2 (09:06→17:15)
[2021-07-27] MEDS: MORPHINE SULFATE SR 15 MG TABLET.SA PO SCH (09:07)
--- NOTE | 2021-07-27 10:19 | NUR ---
SS note SW contacted [facility] [phone] to confirm pt's D/C plan. Per [facility] Miriam, pt will D/C back to home with hospice. [facility] to send clinicals ([phone]). ISAIAH provided information to [facility] for follow up.
[2021-07-27 16:07] VITALS: BP 123/70
[2021-07-27] MEDS: MIRTAZAPINE 15 MG TABLET PO SCH (17:16)
[2021-07-27] MEDS: QUETIAPINE FUMARATE 25 MG TABLET PO SCH (17:16)
[2021-07-27] MEDS: AMIODARONE HCL 200 MG TABLET PO SCH (17:16)
--- NOTE | 2021-07-27 17:55 | NUR ---
RN MS NOTES PER DR. CANELA, HE IS SCHEDULING PT FOR O.R. TO FIX THE WRIST FRACTURE, PT'S SON PEPPER AWARE OF PLAN.
--- NOTE | 2021-07-27 18:43 | NUR ---
RN CLOSING NOTES Patient lying in bed, AO X 2-3 with episodes of confusion/ forgetfulness, able to make needs known and can follow simple commands. Respirations even and unlabored, no SOB, no apparent distress noted. Skin warm to touch, no pallor or cyanosis noted. Due medications given per MD order, tolerating well. All needs attended, kept clean and dry, safety measures maintained, brakes locked, side rails up X2, call light left within reach, will endorse to next shift for continuity of care.
[2021-07-27] MEDS: ACETAMINOPHEN 325 MG TABLET PO PRN (19:54)
[2021-07-27 20:00] VITALS: BP 103/54
[2021-07-28] MEDS: IV 1/2NS 1000 ML 1,000 ML IV PRN ×2 (02:13→15:29)
[2021-07-28 06:17] LABS: BASOPHILS # (AUTO) 0.1 K/uL (0.0-0.2); BASOPHILS % (AUTO) 2.7 % (0.0-2.0); EOSINOPHILS % (AUTO) 7.3 % (0.0-6.0); HEMATOCRIT 36 % (33-45); HEMOGLOBIN 12.3 g/dL (11.5-14.8); LYMPHOCYTES # (AUTO) 1.4 K/uL (0.8-4.8); LYMPHOCYTES % (AUTO) 27.2 % (20.0-44.0); MEAN CORPUSCULAR HGB CONC 35 g/dl (31.0-36.0); MEAN CORPUSCULAR VOLUME 93 fL (82-100); MONOCYTES # (AUTO) 0.4 K/uL (0.1-1.30); MONOCYTES % (AUTO) 8.1 % (2.0-12.0); NEUTROPHILS # (AUTO) 2.8 K/uL (1.8-8.9); NEUTROPHILS % (AUTO) 54.7 % (43.0-81.0); PLATELET COUNT (AUTO) 240 K/uL (150-450); RED BLOOD CELL COUNT(AUTO) 3.82 MIL/uL (4.0-5.2); WHITE BLOOD COUNT (AUTO) 5.2 K/uL (4.3-11.0)
[2021-07-28 06:39] LABS: CALCIUM, SERUM 8.2 mg/dL (8.5-10.1); CREATININE 0.7 mg/dL (0.6-1.3)
--- NOTE | 2021-07-28 06:42 | NUR ---
RN CLOSING NOTES Patient seen comfortably lying in bed, AO X 2-3 with episodes of forgetfulness, reorientation provided, no SOB, breathing even and unlabored, no apparent distress noted, denies any pain or discomfort at this time, no grimacing. Call light left within reach, safety measures maintained, brakes locked, side rails up X2, will endorse care.
--- NOTE | 2021-07-28 07:42 | NUR ---
RN OPENING NOTES Patient seen comfortably lying in bed, no apparent distress noted, respirations even and unlabored, denies any pain or discomfort at this time, no grimacing. Patient seen wearing right arm sling, no s/s of circulation impairment, skin warm to touch, no pallor or cyanosis noted. Call light left within reach, safety measures maintained, brakes locked, side rails up X2, will monitor closely for any changes.
[2021-07-28 08:00] VITALS: BP 119/68
[2021-07-28] MEDS: BENZONATATE 100 MG CAPSULE PO SCH (08:30)
[2021-07-28] MEDS: DULOXETINE HCL 20 MG CAPSULE.DR PO SCH (08:30)
[2021-07-28] MEDS: SENNOSIDES 8.6 MG TABLET PO SCH (08:31)
[2021-07-28] MEDS: PANTOPRAZOLE 40 MG TABLET.DR PO SCH (08:31)
[2021-07-28] MEDS: DONEPEZIL 5 MG TABLET PO SCH (08:31)
[2021-07-28] MEDS: TIZANIDINE HCL 4 MG TABLET PO SCH (08:31)
[2021-07-28] MEDS: DOCUSATE SODIUM 100 MG CAPSULE PO SCH ×2 (08:32→17:10)
[2021-07-28] MEDS: LOSARTAN POTASSIUM 50 MG TABLET PO SCH (08:32)
[2021-07-28] MEDS: MORPHINE SULFATE SR 15 MG TABLET.SA PO SCH (08:33)
[2021-07-28] MEDS: oxyCODONE/APAP (5/325 MG) 1 UDTAB TABLET PO PRN ×2 (14:36→20:57)
--- NOTE | 2021-07-28 14:59 | NUR ---
RN NOTE RECEIVED REPORT FROM DELFIN/CELSO RN'S FOR [facility]
[2021-07-28 16:00] VITALS: BP 107/58
[2021-07-28] MEDS: MIRTAZAPINE 15 MG TABLET PO SCH (17:10)
[2021-07-28] MEDS: ENSURE ENLIVE 237 ML LIQUID (VANILLA) PO SCH (17:10)
[2021-07-28] MEDS: QUETIAPINE FUMARATE 25 MG TABLET PO SCH (17:10)
[2021-07-28] MEDS: AMIODARONE HCL 200 MG TABLET PO SCH (17:11)
--- NOTE | 2021-07-28 18:08 | NUR ---
RN CLOSING NOTE PATIENT RESTING IN BED. A/O X2-3 ON ROOM AIR, NO SOB NOTED. NO S/S OF RESPIRATORY DISTRESS. DENIES ANY PAIN OR DISCOMFORT AT THIS TIME. IV ACCESS ON LFA #22 G, 1/2 NS RUNNING AT 75 ML/HR, INTACT AND PATENT. DUE MEDS GIVEN ORDERED. ALL NEEDS HAVE BEEN MET AND ATTENDED. SAFETY MEASURES MAINTAINED. BED IN LOWEST POSITION, BRAKES LOCKED. SIDE RAILS UP X2. KEPT CALL LIGHT WITHIN REACH. WILL ENDORSE CONTINUITY OF CARE TO ONCOMING SHIFT.
--- NOTE | 2021-07-28 19:40 | NUR ---
MS RN OPENING NOTES RECEIVED PT IN BED, AWAKE, WATCHING TV. PT IS A/Ox 2-3. PT IS ON ROOM AIR AND TOLERATING WELL. NO SOB NOTED. NO S/SX OF RESPIRATORY DISTRESS NOTED. IV ACCESS IN R FOREARM #22 1/ NS @ 75 ML/HR. SAFETY MEASURES IN PLACE: BED IN LOWEST, LOCKED POSITION, BRAKES ON, SIDERAILS UPx2. CALL LIGHT AND TABLE WITHIN REACH. WILL CONTINUE TO MONITOR.
[2021-07-28 20:00] VITALS: BP 143/61
--- NOTE | 2021-07-28 20:57 | NUR ---
ADMINISTERED PERCOCET, PER MD ORDER FOR PAIN 05/29/
--- NOTE | 2021-07-28 22:45 | NUR ---
RN NOTES Spoke to Phuc Delgado ( who has the power of collections attorney)and got a telephone consent for patient 's surgery tomorrow, witnessed by the charge nurse Gayle
[2021-07-29 06:25] LABS: BASOPHILS # (AUTO) 0.1 K/uL (0.0-0.2); BASOPHILS % (AUTO) 2.4 % (0.0-2.0); EOSINOPHILS % (AUTO) 12.2 % (0.0-6.0); HEMATOCRIT 37 % (33-45); HEMOGLOBIN 12.6 g/dL (11.5-14.8); LYMPHOCYTES # (AUTO) 1.3 K/uL (0.8-4.8); MEAN CORPUSCULAR HGB CONC 34 g/dl (31.0-36.0); MEAN CORPUSCULAR VOLUME 94 fL (82-100); MONOCYTES # (AUTO) 0.4 K/uL (0.1-1.30); MONOCYTES % (AUTO) 8.2 % (2.0-12.0); NEUTROPHILS # (AUTO) 2.9 K/uL (1.8-8.9); NEUTROPHILS % (AUTO) 53.2 % (43.0-81.0); PLATELET COUNT (AUTO) 229 K/uL (150-450); RED BLOOD CELL COUNT(AUTO) 3.91 MIL/uL (4.0-5.2); WHITE BLOOD COUNT (AUTO) 5.5 K/uL (4.3-11.0)
--- NOTE | 2021-07-29 06:29 | NUR ---
MS RN CLOSING NOTES PT LYING IN BED, AWAKE, WATCHING TV. PT IS A/Ox 2-3. PT IS ON ROOM AIR AND TOLERATING WELL. NO SOB NOTED. NO S/SX OF RESPIRATORY DISTRESS NOTED. IV ACCESS IN R FOREARM #22 1/ NS @ 75 ML/HR. PT STATED SHE HAD PAIN DURING SHIFT AND WAS TREATED. ALL NEEDS MET. PT KEPT CLEAN AND DRY. SAFETY MEASURES IN PLACE: BED IN LOWEST, LOCKED POSITION, BRAKES ON, SIDERAILS UPx2. CALL LIGHT AND TABLE WITHIN REACH. WILL ENDORSE TO ONCOMING SHIFT.
[2021-07-29 06:36] LABS: CALCIUM, SERUM 8.1 mg/dL (8.5-10.1); CREATININE 0.7 mg/dL (0.6-1.3); POTASSIUM 3.9 mmol/L (3.5-5.1)
[2021-07-29] MEDS: oxyCODONE/APAP (5/325 MG) 1 UDTAB TABLET PO PRN (06:46)
[2021-07-29] MEDS: IV 1/2NS 1000 ML 1,000 ML IV PRN (06:47)
[2021-07-29 08:00] VITALS: BP 159/75
--- NOTE | 2021-07-29 08:00 | NUR ---
RN OPENING NOTE PT AWAKE IN BED RESTING. ON RA WITH NO SOB OR RESPIRATORY DISTRESS PRESENT. A/O X2 WITH PERIODS OF CONFUSION. NO TOURISM RADIO PRESENTER PRESENT. NO EDEMA PRESENT. PT IS SELF AMBULATORY WITH 1 PERSON ASSIST. COMMODE AT BEDSIDE. SKIN IS INTACT. R ARM SLING PRESENT FOR HUMERUS FX. NPO FOR UPCOMING SURGERY. CONSENTS AND CHECKLIST IN CHART. IV PRESENT ON R FA 22G AND FLUSHES WELL. LABS AND ORDERS REVIEWED. SAFETY MEASURES IN PLACE. SIDE RAILS RAISED. BED LOWERED. CALL LIGHT WITHIN REACH. WILL CONTINUE TO MONITOR.
[2021-07-29] MEDS: DOCUSATE SODIUM 100 MG CAPSULE PO SCH ×2 (08:40→16:19)
[2021-07-29] MEDS: LOSARTAN POTASSIUM 50 MG TABLET PO SCH (08:40)
[2021-07-29] MEDS: DONEPEZIL 5 MG TABLET PO SCH (08:40)
[2021-07-29] MEDS: ENSURE ENLIVE 237 ML LIQUID (VANILLA) PO SCH ×2 (08:41→16:19)
[2021-07-29] MEDS: MORPHINE SULFATE SR 15 MG TABLET.SA PO SCH (08:41)
[2021-07-29] MEDS: DULOXETINE HCL 20 MG CAPSULE.DR PO SCH (08:41)
[2021-07-29] MEDS: PANTOPRAZOLE 40 MG TABLET.DR PO SCH (08:45)
[2021-07-29] MEDS: SENNOSIDES 8.6 MG TABLET PO SCH (08:46)
[2021-07-29] MEDS: TIZANIDINE HCL 4 MG TABLET PO SCH (08:46)
[2021-07-29] MEDS: BENZONATATE 100 MG CAPSULE PO SCH (08:46)
[2021-07-29] MEDS ORDERED: ANESTHESIA TRAY IN PYXIS 1 EA TRAY MC ONE (14:32)
--- NOTE | 2021-07-29 14:54 | NUR ---
RN NOTE PT DOWN FOR SURGERY.
[2021-07-29] MEDS ORDERED: FENTANYL PF 250MCG/5ML AMPUL ONE (16:19)
[2021-07-29] MEDS ORDERED: MIDAZOLAM HCL 2 MG/2ML VIAL ONE (16:20)
[2021-07-29] MEDS ORDERED: FAMOTIDINE/PF INJ 20 MG/2 ML VIAL IV ONE (16:20)
[2021-07-29] MEDS ORDERED: VANCOMYCIN 1 GM VIAL ONE (17:04)
[2021-07-29] MEDS: QUETIAPINE FUMARATE 25 MG TABLET PO SCH (17:13)
[2021-07-29] MEDS: AMIODARONE HCL 200 MG TABLET PO SCH (17:13)
[2021-07-29] MEDS: MIRTAZAPINE 15 MG TABLET PO SCH (17:13)
[2021-07-29] MEDS ORDERED: FENTANYL PF 100MCG/2ML AMPUL ONE (17:52)
[2021-07-29] MEDS ORDERED: IV D5/0.45 NACL W/20 MEQ KCL 1L IV PRN (18:00)
[2021-07-29] MEDS: MORPHINE SULFATE INJ 2 MG/ML DISP.SYRIN IV PRN (18:36)
--- NOTE | 2021-07-29 18:51 | NUR ---
RN CLOSING NOTE PT AWAKE IN BED RESTING. ON RA WITH NO SOB OR RESPIRATORY DISTRESS PRESENT. A/O X2 WITH PERIODS OF CONFUSION. NO CERTIFIED PROFESSIONAL CODER PRESENT. NO EDEMA PRESENT. PT IS SELF AMBULATORY WITH 1 PERSON ASSIST. COMMODE AT BEDSIDE. SKIN IS INTACT. R ARM SLING PRESENT. IV PRESENT ON L HAND 20G AND FLUSHES WELL. LABS AND ORDERS REVIEWED. SAFETY MEASURES IN PLACE. SIDE RAILS RAISED. BED LOWERED. CALL LIGHT WITHIN REACH. REPORT TO BE GIVEN TO NIGHT NURSE FOR NADINE.
--- NOTE | 2021-07-29 19:45 | NUR ---
MS RN OPENING NOTES PT LYING IN BED, ASLEEP, EASY TO AWAKEN WITH VERBAL STIMULI. PT IS A/Ox 2-3. ON ROOM AIR AND TOLERATING WELL. NO SOB NOTED. NO S/SX OF RESPIRATORY DISTRESS NOTED. IV ACCESS IN L HAND #20 SALINE LOCKED. IV IS INTACT, PATENT, AND FLUSHING WELL. SAFETY MEASURES IN PLACE: BED IN LOWEST, LOCKED POSITION, BRAKES ON, SIDERAILS UPx2. CALL LIGHT AND TABLE WITHIN REACH. WILL CONTINUE TO MONITOR.
[2021-07-29 20:00] VITALS: BP 140/50
[2021-07-29] MEDS: HYDROCODONE/APAP 5/325MG TABLET PO PRN (21:36)
--- NOTE | 2021-07-29 21:36 | NUR ---
ADMINISTERED NORCO, PER MD ORDER FOR PAIN. WILL CONTINUE TO MONITOR.
[2021-07-30] MEDS: ANCEF 1 GM/50 ML D5W IV SCH ×2 (00:24→08:27)
[2021-07-30] MEDS: MORPHINE SULFATE INJ 2 MG/ML DISP.SYRIN IV PRN ×2 (00:38→12:01)
--- NOTE | 2021-07-30 00:45 | NUR ---
ADMINISTER MORPHINE FOR PAIN, PER MD ORDER. VITAL SIGNS STABLE. WILL CONTINUE TO MONITOR.
[2021-07-30 06:27] LABS: BASOPHILS # (AUTO) 0.1 K/uL (0.0-0.2); BASOPHILS % (AUTO) 0.5 % (0.0-2.0); EOSINOPHILS % (AUTO) 0.1 % (0.0-6.0); HEMATOCRIT 33 % (33-45); LYMPHOCYTES # (AUTO) 0.6 K/uL (0.8-4.8); LYMPHOCYTES % (AUTO) 4.2 % (20.0-44.0); MEAN CORPUSCULAR HGB CONC 34 g/dl (31.0-36.0); MEAN CORPUSCULAR VOLUME 94 fL (82-100); MONOCYTES # (AUTO) 0.7 K/uL (0.1-1.30); MONOCYTES % (AUTO) 5.2 % (2.0-12.0); NEUTROPHILS # (AUTO) 12.4 K/uL (1.8-8.9); PLATELET COUNT (AUTO) 213 K/uL (150-450); RED BLOOD CELL COUNT(AUTO) 3.45 MIL/uL (4.0-5.2); WHITE BLOOD COUNT (AUTO) 13.8 K/uL (4.3-11.0)
--- NOTE | 2021-07-30 06:43 | NUR ---
MS RN CLOSING NOTES PT LYING IN BED, ASLEEP, EASY TO AWAKEN WITH VERBAL STIMULI. PT IS A/Ox 2-3. ON ROOM AIR AND TOLERATING WELL. NO SOB NOTED. NO S/SX OF RESPIRATORY DISTRESS NOTED. IV ACCESS IN L AC #18 RUNNING 20 MEQ KCL D51/2 NS @ 75 ML/HR. IV IS INTACT, PATENT, AND FLUSHING WELL. ALL NEEDS MET. ADMINISTER PAIN MEDICATION NEEDED. PT KEPT CLEAN AND DRY. SAFETY MEASURES IN PLACE: BED IN LOWEST, LOCKED POSITION, BRAKES ON, SIDERAILS UPx2. CALL LIGHT AND TABLE WITHIN REACH. WILL ENDORSE TO ONCOMING SHIFT.
[2021-07-30 06:59] LABS: CALCIUM, SERUM 7.6 mg/dL (8.5-10.1); CREATININE 0.8 mg/dL (0.6-1.3); POTASSIUM 3.9 mmol/L (3.5-5.1)
--- NOTE | 2021-07-30 07:37 | NUR ---
RN OPENING NOTE PT AWAKE IN BED RESTING. ON RA WITH NO SOB OR RESPIRATORY DISTRESS PRESENT. A/O X2 WITH PERIODS OF CONFUSION. NO JOB COACH PRESENT. NO EDEMA PRESENT. PT IS SELF AMBULATORY WITH 1 PERSON ASSIST. COMMODE AT BEDSIDE. SKIN IS INTACT. R ARM SLING PRESENT FOR HUMERUS FX. IV PRESENT ON L AC 20G AND FLUSHES WELL. LABS AND ORDERS REVIEWED. SAFETY MEASURES IN PLACE. SIDE RAILS RAISED. BED LOWERED. CALL LIGHT WITHIN REACH. WILL CONTINUE TO MONITOR.
[2021-07-30 08:00] VITALS: BP 106/54
[2021-07-30] MEDS: DOCUSATE SODIUM 100 MG CAPSULE PO SCH ×3 (08:28→17:22)
[2021-07-30] MEDS: SENNOSIDES 8.6 MG TABLET PO SCH (08:28)
[2021-07-30] MEDS: MORPHINE SULFATE SR 15 MG TABLET.SA PO SCH (08:28)
[2021-07-30] MEDS: TIZANIDINE HCL 4 MG TABLET PO SCH (08:28)
[2021-07-30] MEDS: PANTOPRAZOLE 40 MG TABLET.DR PO SCH (08:29)
[2021-07-30] MEDS: LOSARTAN POTASSIUM 50 MG TABLET PO SCH (08:29)
[2021-07-30] MEDS: BENZONATATE 100 MG CAPSULE PO SCH (08:29)
[2021-07-30] MEDS: DULOXETINE HCL 20 MG CAPSULE.DR PO SCH (08:29)
[2021-07-30] MEDS: DONEPEZIL 5 MG TABLET PO SCH (08:30)
[2021-07-30] MEDS: ENSURE ENLIVE 237 ML LIQUID (VANILLA) PO SCH ×3 (08:30→17:37)
--- NOTE | 2021-07-30 11:35 | NUR ---
RN NOTE CALLED DR CANELA FOR ORTHO CLEARANCE PRIOR TO DISCHARGE. CLEARED BY WILL CONTINUE TO MONITOR.
[2021-07-30 16:00] VITALS: BP 99/47
[2021-07-30] MEDS: MIRTAZAPINE 15 MG TABLET PO SCH (17:22)
[2021-07-30] MEDS: ACETAMINOPHEN 325 MG TABLET PO PRN (17:22)
[2021-07-30] MEDS: QUETIAPINE FUMARATE 25 MG TABLET PO SCH (17:22)
[2021-07-30 17:23] VITALS: BP 107/53
[2021-07-30] MEDS: AMIODARONE HCL 200 MG TABLET PO SCH (17:23)
--- NOTE | 2021-07-30 18:14 | NUR ---
RN CLOSING NOTE PT AWAKE IN BED RESTING. ON RA WITH NO SOB OR RESPIRATORY DISTRESS PRESENT. A/O X2 WITH PERIODS OF CONFUSION. NO MANAGER TELECOM PRESENT. NO EDEMA PRESENT. PT IS SELF AMBULATORY WITH 1 PERSON ASSIST. COMMODE AT BEDSIDE. SKIN IS INTACT. R ARM SLING PRESENT FOR HUMERUS FX. IV PRESENT ON L AC 20G AND FLUSHES WELL. LABS AND ORDERS REVIEWED. PENDING DISCHARGE. SAFETY MEASURES IN PLACE. SIDE RAILS RAISED. BED LOWERED. CALL LIGHT WITHIN REACH. WILL GIVE REPORT TO NIGHT NURSE FOR NADINE.
[2021-07-30] MEDS: HYDROCODONE/APAP 5/325MG TABLET PO PRN (19:04)
--- NOTE | 2021-07-30 19:08 | NUR ---
DISCHARGE NOTE PT DISCHARGED HOME WITH CAREGIVER. FAMILY AND CAREGIVER NOTIFIED. [employer] EDUCATION UTILIZED AND EDUCATION GIVEN TO PT. F/U WITH PCP. F/U WITH DR CANELA. F/U WITH PHYSICAL THERAPY. IV LINE REMOVED. ID BANDS REMOVED. SKIN INTACT. PT TRANSPORTED OUT OF HOSPITAL BY AMBULANCE ESCORTED BY EMT.
== END 2021-07-30 19:05 | disposition home or self-care (01) | DRG 511 ==
LOC: ER 20:22 → TRANSITION 07-24 00:19 → MED 07-24 12:57
PROVIDERS: ADMIT Hospitalist; ATTEND Family Medicine
PROC: 0PSH04Z Reposition Right Radius with Internal Fixation Device, Open Approach (ICD-10-PCS; principal; 2021-07-29)
DX: M84.421A Pathological fracture, right humerus, initial encounter for fracture (principal); C79.51 Secondary malignant neoplasm of bone; I13.0 Hypertensive heart and chronic kidney disease with heart failure and stage 1 through stage 4 chronic kidney disease, or unspecified chronic kidney disease; F03.90 Unspecified dementia, unspecified severity, without behavioral disturbance, psychotic disturbance, mood disturbance, and anxiety; Z20.822 Contact with and (suspected) exposure to COVID-19; N18.9 Chronic kidney disease, unspecified; I50.9 Heart failure, unspecified; Z79.899 Other long term (current) drug therapy; Z90.710 Acquired absence of both cervix and uterus; C80.1 Malignant (primary) neoplasm, unspecified; I48.0 Paroxysmal atrial fibrillation; Z91.81 History of falling; R79.89 Other specified abnormal findings of blood chemistry; D72.829 Elevated white blood cell count, unspecified
CPT/HCPCS: 36415; 71045-TC; 73060-TC; 73090-TC; 80048-TC; 80053-TC; 80061-TC; 83735-TC; 84100-TC; 84443-TC; 85025-TC; 87081-TC; 93307-TC; 97112-TC; 97116-TC; 97530-TC; A4217; A4565; A6253; A6402; C1713; C9113; C9803; G0378; J0461; J0690; J1170; J2250; J2270; J2405; J2704; J2765; J3010; J3370; J3480; J3490; J7030; J7060; J8597